=== PATIENT | female | born 1980 | race American Indian/Alaskan Native ===

== ENCOUNTER 2017-05-28 05:44 | Day surgery (SDC) | payer OTHER ==
--- NOTE | 2017-05-27 21:19 | History and Physical Report ---
History of Present Illness Date of examination: 05/22/17 Chief complaint: endometrial polyp History of present illness: Pt is a 37 year old -[place] female presents with dysfunctional uterine bleeding and two suspected endometrial polyps on pelvic ultrasound. Past History Past Medical History: hypertension, diabetes, other (morbid obesity, ankylosing spondylitis) Past Surgical History: no surgical history [employer] History: gonorrhea (remote, treated) Family/Genetic History: diabetes, heart disease, hypertension, other ( ankylosing spondylitis) Social history: smoking Medications and Allergies Allergies Allergy/AdvReac Type Severity Reaction Status Date / Time No Known Allergies Allergy Unverified 05/23/17 17:19 Home Medications Medication Instructions Recorded Confirmed Last Taken Type Metoprolol [Lopressor] 25 mg PO BID 02/18/17 05/23/17 Unknown History Multivitamin Tab [Multiple Vitamin 1 each PO QDAY 02/18/17 05/23/17 Unknown History TAB (Theragran)] Ranitidine HCl [Zantac 150 MG TAB] 150 mg PO PRN PRN 02/18/17 05/23/17 Unknown History metFORMIN [Glucophage] 1,000 mg PO BID 02/18/17 05/23/17 Unknown History Active Meds: Active Medications Famotidine (Pepcid) 20 mg PO PREOP NR Stop: 05/28/17 23:00 Sodium Chloride (Nacl 0.9% 1000 Ml) 1,000 mls @ 75 mls/hr IV DIRECT LEANNA Cefazolin Sodium (Ancef/Sterile Water 2 Gm/20 Ml) 2 gm in 20 mls @ 80 mls/hr IV PREOP NR PRN Reason: Protocol Midazolam HCl (Versed) 2 mg IV PREOP NR Stop: 05/28/17 23:59 Review of Systems All systems: negative - Physical Exam Breasts: Positive: deferred Cardiovascular: Regular rate Lungs: Positive: Clear to auscultation Abdomen: Positive: soft (obese) Extremities: Positive: normal Results All other labs normal. Ultrasound: other (Sonohysterogram 01/10/17: Uterus 8.5x5.5x4.3 cm. EMS 6mm. Two sessile polyps. Anterior wall 4x11 mm. Posterior wall in upper body 6x11 mm. No abnormal vascularity.) Assessment and Plan A: Dysfunctional Uterine Bleeding Endometrial Polyps Hypertension Diabetes Morbid Obesity Tobacco Use P: Proceed with Hysteroscopy, dilation and curettage, endometrial sampling and other indicated procedures.
[2017-05-28] MEDS ORDERED: VERSED IV NR (06:00)
[2017-05-28] MEDS ORDERED: PEPCID PO NR (06:00)
[2017-05-28] MEDS ORDERED: NACL 0.9% 1000 ML 1,000 ML IV SCH (06:00)
[2017-05-28] MEDS ORDERED: ANCEF/STERILE WATER 2 GM/20 ML 2 GM/20 ML SYRINGE IV NR (06:00)
[2017-05-28] MEDS ORDERED: NACL BACTERIOSTATIC INFILTRATI ONE (06:31)
[2017-05-28 06:47] LABS: Hematocrit 35.7 % (30.3-42.9); Hemoglobin 12.1 gm/dl (10.1-14.3); Mean Corpuscular HGB Conc 34 % (30-34); Mean Corpuscular Hemoglobin 29 pg (28-32); Mean Corpuscular Volume 87 fl (79-97); Platelet Count 320 K/mm3 (140-440); Red Blood Count 4.12 M/mm3 (3.65-5.03); Red Cell Distribution Width 13.4 % (13.2-15.2)
[2017-05-28] MEDS ORDERED: DIPRIVAN 10 MG/ML IV ONE ×2 (07:17→07:37)
[2017-05-28] MEDS ORDERED: XYLOCAINE MPF 2% ONE (07:17)
[2017-05-28] MEDS ORDERED: DILAUDID ONE (07:17)
[2017-05-28] MEDS ORDERED: DILAUDID IV PRN (07:19)
--- NOTE | 2017-05-28 07:26 | Anesthesia Day of Surgery ---
Anesthesia Day of Surgery - Day of Surgery Patient Examined: Yes Patient H&P Reviewed: Yes Patient is NPO: Yes
--- NOTE | 2017-05-28 07:26 | Anesthesia Consultation ---
Anesthesia Consult and Med Hx Date of service: 05/28/17 - Airway Anesthetic Teeth Evaluation: Good ROM Head & Neck: Adequate Mental/Hyoid Distance: Adequate Mallampati Class: Class I Intubation Access Assessment: Good - Pulmonary Exam CTA: Yes - Cardiac Exam Cardiac Exam: RRR - Pre-Operative Health Status ASA Pre-Surgery Classification: ASA3 Proposed Anesthetic Plan: General - Pulmonary Hx Smoking: Yes (quit May 22) - Cardiovascular System Hx Hypertension: Yes (x 5 yrs) - Central Nervous System Hx Psychiatric Problems: No - Gastrointestinal Hx Gastroesophageal Reflux Disease: Yes (food related) - Endocrine Hx Non-Insulin Dependent Diabetes: Yes - Other Systems Hx Alcohol Use: Yes (occas) Hx Cancer: No - Additional Comments Anesthesia Medical History Comments: Cyst on rt. lung, Ankylosing spondylitis, benadryl to sleep
[2017-05-28] MEDS ORDERED: ZOFRAN IV PRN (07:30)
[2017-05-28] MEDS ORDERED: NACL 0.9% IR ONE ×3 (07:51→08:51)
[2017-05-28] MEDS ORDERED: ZOFRAN ONE (08:01)
[2017-05-28] MEDS ORDERED: TORADOL ONE (08:12)
--- NOTE | 2017-05-28 09:11 | Operative Report ---
Operative Report Operative Report: Date of procedure: 05/28/2017 Preoperative diagnosis: #1 Dysfunctional uterine bleeding #2 Endometrial polyp # 3 Morbid obesity Postoperative diagnosis: Same Procedure: Operative Hysteroscopy with Polypectomy and endometrial sampling with Resectr device Surgeon: Thi Miranda M.D. Anesthesia: General with LMA Findings: 1) Small anteverted uterus which sounded to 9 cm 2) 3 small polyps, 2 on the posterior wall of the uterus, 1 in the right cornu EBL: Minimal Drains: None Complications: None Disposition: Stable to PACU Indication for Procedure: Pt is a 37 year old with for surgical evaluation of dysfunctional uterine bleeding and endometrial polyps. Operation in detail: After the risks, benefits, alternatives, and complications of the procedure were splayed to the patient, she gave informed consent for the procedure. She was subsequently taken to the operating room with IV noted to be running well placed in the dorsal supine position. Gen. anesthesia with LMA was induced without difficulty. The patient was then placed in the dorsal lithotomy position and exam under anesthesia was performed. She was then prepped and draped in normal sterile fashion. A timeout was performed. A catheter was used to drain the bladder of clear urine. An open sided bivalve speculum was placed into the vagina for adequate visualization of the cervix. A single-tooth tenaculum was placed on the anterior lip of the cervix for traction. The uterus was then sounded to 9 cm. Parker dilators were then used a #21 for adequate cervical dilation. The Aquilex hysteroscope was then used to visualize endometrial cavity showing areas of endometrial thickening on the anterior and lateral surfaces of the endometrium. The Resectr device was used to perform the polypectomies and sample the endometrium. All instruments were then removed from endometrial cavity. The single-tooth tenaculum was removed. Pressure was used to induce hemostasis of the tenaculum puncture sites. Hemostasis was noted. The bivalve speculum was removed from the vagina and the procedure was ended. The patient was replaced in dorsal supine position and extubated without difficulty. She was subsequently taken to the PACU in stable condition. She tolerated the procedure well. All instrument and Ray-Suzan counts were correct 2.
--- NOTE | 2017-05-28 09:15 | Short Stay Summary ---
Short Stay Documentation Date of service: 05/28/17 - History H&P: dictated Social history: smoking - Allergies and Medications Current Medications: Allergies No Known Allergies Allergy (Unverified 05/23/17 17:19) Home Medications Medication Instructions Recorded Confirmed Last Taken Type Metoprolol [Lopressor] 25 mg PO BID 02/18/17 05/28/17 05/28/17 05:00 History Multivitamin Tab [Multiple Vitamin 1 each PO QDAY 02/18/17 05/23/17 05/27/17 History TAB (Theragran)] Ranitidine HCl [Zantac 150 MG TAB] 150 mg PO PRN PRN 02/18/17 05/23/17 05/27/17 History metFORMIN [Glucophage] 1,000 mg PO BID 02/18/17 05/28/17 05/27/17 08:00 History Ibuprofen [Motrin] 800 mg PO Q8HR PRN #30 tablet 05/28/17 Unknown Rx oxyCODONE /ACETAMINOPHEN [Percocet 1 tab PO Q6HR PRN #20 tablet 05/28/17 Unknown Rx 5/325] Active Medications Famotidine (Pepcid) 20 mg PO PREOP NR Stop: 05/28/17 23:00 Last Admin: 05/28/17 06:41 Dose: 20 mg Hydromorphone HCl (Dilaudid) 0.5 mg IV Q10MIN PRN PRN Reason: Pain , Severe (7-10) Stop: 05/28/17 15:00 Sodium Chloride (Nacl 0.9% 1000 Ml) 1,000 mls @ 75 mls/hr IV DIRECT LEANNA Last Admin: 05/28/17 06:30 Dose: 75 mls/hr Cefazolin Sodium (Ancef/Sterile Water 2 Gm/20 Ml) 2 gm in 20 mls @ 80 mls/hr IV PREOP NR PRN Reason: Protocol Stop: 05/28/17 23:59 Midazolam HCl (Versed) 2 mg IV PREOP NR Stop: 05/28/17 23:59 Last Admin: 05/28/17 07:19 Dose: 2 mg - Physical exam Breasts: deferred - Brief post op/procedure progress note Date of procedure: 05/28/17 Pre-op diagnosis: Dysfunctional Uterine Bleeding, Endometrial Polyp Post-op diagnosis: same Procedure: Hysteroscopy Polypectomy and endometrial sampling with Resectr Device Anesthesia: GETA (with LMA ) Findings: 1) Small anteverted uterus which sounded to 9 cm 2) 3 small polyps, 2 on the posterior wall of the uterus, 1 in the right cornu Surgeon: XIOMARA MIRANDA Estimated blood loss: minimal Pathology: list (polyps and endometrial tissue) Specimen disposition: to lab - Hospital course Hospital course: Patient underwent hysteroscopy with polypectomy and endometrial sampling which she tolerated well. She was observed in the PACU until she met discharge criteria. She will return to the office in [address] Miranda. - Disposition Condition at discharge: Stable Disposition: TO HOME OR SELFCARE - Discharge Diagnoses (1) Dysfunctional uterine bleeding Status: Acute (2) Morbid obesity Status: Acute (3) Endometrial polyp Status: Acute (4) Diabetes Status: Acute Qualifiers: Diabetes mellitus type: type 2 Diabetes mellitus complication status: with unspecified complications Diabetes mellitus complication detail: D Diabetic retinopathy severity: D Proliferative retinopathy type: P Diabetes mellitus macular edema: D Diabetes mellitus longterm insulin use: without longterm use Laterality: L Chronic kidney disease stage: C Qualified Code(s): E11.8 - Type 2 diabetes mellitus with unspecified complications (5) Hypertension Status: Acute Qualifiers: Hypertension type: unspecified Qualified Code(s): I10 - Essential (primary ) hypertension (6) Tobacco abuse Status: Acute Short Stay Discharge Plan Activity: other (Nothing in vagina, no baths x 4 wks ) Weight Bearing Status: Full Weight Bearing Diet: regular Follow up with: ADRIAN GRAFF MD [Primary Care Provider] - 7 Days XIOMARA MIRANDA MD [Staff Physician] - 06/11/17 (postop) Prescriptions: Ibuprofen [Motrin] 800 mg PO Q8HR PRN #30 tablet PRN Reason: Pain oxyCODONE /ACETAMINOPHEN [Percocet 5/325] 1 tab PO Q6HR PRN #20 tablet PRN Reason: Pain
--- NOTE | 2017-05-28 09:20 | Post Anesthesia Evaluation ---
- Post Anesthesia Evaluation Patient Participated: Yes Airway Patent: Yes Stable Respiratory Function: Yes Nausea/Vomiting: No Temp > 96.8F: Yes Pain Manageable: Yes Adequeate Hydration: Yes Anesthesia Complications: No Block Receding Appropriately: Not Applicable Patient on Ventilator: No
[2017-05-28] MEDS ORDERED: PERCOCET 5/325 PO PRN (09:29)
[2017-05-28 10:02] VITALS: BP 112/83
== END 2017-05-28 10:21 | disposition home or self-care (01) ==
LOC: OR 05:44
PROVIDERS: ATTEND Obstetrics & Gynecology
DX: N85.01 Benign endometrial hyperplasia (principal); N85.4 Malposition of uterus; K21.9 Gastro-esophageal reflux disease without esophagitis; I10 Essential (primary) hypertension; E11.9 Type 2 diabetes mellitus without complications; M45.9 Ankylosing spondylitis of unspecified sites in spine; E66.01 Morbid (severe) obesity due to excess calories; Z68.44 Body mass index [BMI] 60.0-69.9, adult; Z87.891 Personal history of nicotine dependence; Z72.89 Other problems related to lifestyle; Z79.899 Other long term (current) drug therapy; Z79.84 Long term (current) use of oral hypoglycemic drugs
CPT/HCPCS: 36415; 58558; 81025; 82962; 85027; 86850; 86900; 86901; 88305; A4217; C1782; J0690; J1170; J1885; J2250; J2405; J2704; J7030

== ENCOUNTER 2017-09-04 14:14 | Inpatient (IN) | payer OTHER ==
[2017-09-04] MEDS ORDERED: ZOFRAN IV ONE (16:13)
[2017-09-04] MEDS ORDERED: SUBLIMAZE IV ONE ×2 (16:13→21:18)
[2017-09-04] MEDS ORDERED: NACL 0.9% 1000 ML 1,000 ML IV ONE (16:14)
--- NOTE | 2017-09-04 16:19 | Emergency Department Report ---
HPI - General Chief Complaint: Wound/Laceration Time Seen by Provider: 09/04/17 16:07 - HPI HPI: Room 25 The patient is a 37-year-old female comes in with a chief complaint of left buttocks abscess. The patient states last night she began to feel pain at the site of the left buttocks/perineum. The patient states the pain continued to increase since last night. Patient is to subjective fever. Patient denies any drainage from the site or any recent trauma. The patient currently gives her pain a score of 10/10 Location: Left buttocks, perineum Duration: Constant since last night Quality: Pain Severity:10/10 Modifying factors: [see above] Context: [see above] Mode of transportation: [not driving] ED Past Medical Hx - Past Medical History Hx Hypertension: Yes (x 5 yrs) Hx Diabetes: Yes (x 5 yrs) Hx GERD: Yes Additional medical history: Ankylosing spondylitis - Surgical History Additional Surgical History: D&C - Family History Family history: no significant - Social History Smoking Status: Former Smoker (none 6 months) Substance Use Type: None (denies illicit drug use), Alcohol (occasional) - Medications Home Medications: Home Medications Medication Instructions Recorded Confirmed Last Taken Type Metoprolol [Lopressor] 25 mg PO BID 02/18/17 09/04/17 09/04/17 History Multivitamin Tab [Multiple Vitamin 1 each PO QDAY 02/18/17 09/04/17 09/03/17 History TAB (Theragran)] Ranitidine HCl [Zantac 150 MG TAB] 150 mg PO PRN PRN 02/18/17 09/04/17 09/03/17 History metFORMIN [Glucophage] 1,000 mg PO BID 02/18/17 09/04/17 09/04/17 History Ibuprofen [Motrin] 800 mg PO Q8HR PRN #30 tablet 05/28/17 09/04/17 09/03/17 Rx Lovastatin [Altoprev] 20 mg PO QPM 09/04/17 09/04/17 09/03/17 History medroxyPROGESTERone ACETATE 10 mg PO QDAY 09/04/17 09/04/17 09/03/17 History [Provera] ED Review of Systems ROS: Stated complaint: BUTTOCKS ABSCESS Other details as noted in HPI Constitutional: fever (subjective) Skin: lesions Physical Exam - Physical Exam Vital Signs: Vital Signs 09/04/17 14:32 Temperature 99 F Pulse Rate 138 H Respiratory 20 Rate Blood Pressure 144/102 O2 Sat by Pulse 99 Oximetry Physical Exam: GENERAL: The patient is well-developed well-nourished female lying on stretcher in the right lateral decubitus position appearing to be in moderate discomfort. [] HEENT: Normocephalic. Atraumatic. Extraocular motions are intact. Patient has moist mucous membranes. NECK: Trachea midline CHEST/LUNGS: There is no respiratory distress noted. There is no gallop rub or murmur. ABDOMEN: Obese SKIN: There is an approximately baseball size region of fluctuance to the left inferior gluteus that also appears to approach the perianal region. There is no drainage. There is overlying erythema/cellulitis NEURO: The patient is awake, alert, and oriented. The patient is cooperative. The patient has normal speech MUSCULOSKELETAL: There is no evidence of acute injury. ED Course Vital Signs 09/04/17 14:32 Temperature 99 F Pulse Rate 138 H Respiratory 20 Rate Blood Pressure 144/102 O2 Sat by Pulse 99 Oximetry - Consultations Consultation #1: 09/04/17 21:53 Surgery paged ED Medical Decision Making - Lab Data Result diagrams: 09/04/17 16:15 09/04/17 16:15 Laboratory Tests 09/04/17 09/04/17 09/04/17 15:59 16:15 16:15 WBC 14.8 H RBC 4.29 Hgb 12.3 Hct 38.0 MCV 89 MCH 29 MCHC 33 RDW 14.7 Plt Count 311 Lymph % (Auto) 12.7 L [place] % (Auto) 7.8 H Eos % (Auto) 0.2 Baso % (Auto) 0.5 Lymph # 1.9 [place] # 1.2 H Eos # 0.0 Baso # 0.1 Seg Neutrophils % 78.8 H Seg Neutrophils # 11.7 H VBG pH Sodium 135 L Potassium 3.7 Chloride 99.2 Carbon Dioxide 21 L Anion Gap 19 BUN 6 L Creatinine 0.8 Estimated GFR > 60 BUN/Creatinine Ratio 8 Glucose 141 H POC Glucose 152 H Lactic Acid Calcium 9.0 HCG, Qual Urine Color Urine Turbidity Urine pH Ur Specific [place] Urine Protein Urine Glucose (UA) Urine Ketones Urine Blood Urine Nitrite Urine Bilirubin Urine Urobilinogen Ur Leukocyte Esterase Urine WBC (Auto) Urine RBC (Auto) U Epithel Cells (Auto) Urine Mucus 09/04/17 09/04/17 09/04/17 16:15 16:15 17:14 WBC RBC Hgb Hct MCV MCH MCHC RDW Plt Count Lymph % (Auto) [place] % (Auto) Eos % (Auto) Baso % (Auto) Lymph # [place] # Eos # Baso # Seg Neutrophils % Seg Neutrophils # VBG pH 7.438 H Sodium Potassium Chloride Carbon Dioxide Anion Gap BUN Creatinine Estimated GFR BUN/Creatinine Ratio Glucose POC Glucose Lactic Acid 2.50 H* Calcium HCG, Qual Negative Urine Color Urine Turbidity Urine pH Ur Specific [place] Urine Protein Urine Glucose (UA) Urine Ketones Urine Blood Urine Nitrite Urine Bilirubin Urine Urobilinogen Ur Leukocyte Esterase Urine WBC (Auto) Urine RBC (Auto) U Epithel Cells (Auto) Urine Mucus 09/04/17 17:56 WBC RBC Hgb Hct MCV MCH MCHC RDW Plt Count Lymph % (Auto) [place] % (Auto) Eos % (Auto) Baso % (Auto) Lymph # [place] # Eos # Baso # Seg Neutrophils % Seg Neutrophils # VBG pH Sodium Potassium Chloride Carbon Dioxide Anion Gap BUN Creatinine Estimated GFR BUN/Creatinine Ratio Glucose POC Glucose Lactic Acid Calcium HCG, Qual Urine Color Yellow Urine Turbidity Slightly-cloudy Urine pH 5.0 Ur Specific [place] 1.024 Urine Protein 100 mg/dl Urine Glucose (UA) Neg Urine Ketones 20 Urine Blood Neg Urine Nitrite Neg Urine Bilirubin Neg Urine Urobilinogen 2.0 Ur Leukocyte Esterase Neg Urine WBC (Auto) 1.0 Urine RBC (Auto) 2.0 U Epithel Cells (Auto) 14.0 H Urine Mucus 1+ - Radiology Data Radiology results: report reviewed (CT abdomen and pelvis), image reviewed (CT abdomen and pelvis) FINAL REPORT PROCEDURE: CT abdomen and pelvis with contrast. TECHNIQUE: Computerized axial tomography of the abdomen and pelvis was performed after the IV injection of iodinated nonionic contrast. HISTORY: Left buttock or possibly perianal abscess. COMPARISON: No prior studies are available for comparison. FINDINGS: The lung bases are clear. There are no pleural effusions. The heart size is normal. The liver, pancreas and spleen appear normal. The gallbladder is present. The adrenal glands are not enlarged. Both kidneys appear normal in size and configuration. The abdominal aorta has a normal caliber. There is no retroperitoneal adenopathy. The unopacified gastrointestinal tract is unremarkable. A normal appendix is visible. The bladder, uterus and adnexal regions appear normal. There is a small area of low attenuation adjacent to the left side of the anus. This measures approximately 23.9 millimeters x 14.9 millimeters in cross-section. It is not of definite fluid attenuation but could represent a phlegmon or early abscess. There is also some infiltration of the subcutaneous fat in the left buttock consistent with inflammation. The regional skeleton appears intact. IMPRESSION: Inflammation in the left perianal area and adjacent subcutaneous fat. Possible small phlegmon versus early abscess. Transcribed By: MRM Dictated By: GIGI GARCIA MD Electronically Authenticated By: GIGI GARCIA MD Signed Date/Time: 09/04/171744 DD/ 44 TD/TT: 09/04/171744 - Differential Diagnosis perianal abscess, cellulitis, abscess, DKA Critical care attestation.: If time is entered above; I have spent that time in minutes in the direct care of this critically ill patient, excluding procedure time. ED Disposition Clinical Impression: Perianal abscess, Tachycardia Disposition: OP ADMIT IP TO THIS HOSP Is pt being admited?: Yes Does the pt Need Aspirin: No Condition: Serious Referrals: CLAUDIA JUNG MD [Primary Care Provider] - 3-5 Days Time of Disposition: 21:58 (hospitalist paged (Dr. Marielle Laughlin))
[2017-09-04 16:31] LABS: Basophils % (Auto) 0.5 % (0.0-1.8); Eosinophils % (Auto) 0.2 % (0.0-4.3); Hemoglobin 12.3 gm/dl (10.1-14.3); Mean Corpuscular HGB Conc 33 % (30-34); Mean Corpuscular Hemoglobin 29 pg (28-32); Mean Corpuscular Volume 89 fl (79-97); Platelet Count 311 K/mm3 (140-440); Red Blood Count 4.29 M/mm3 (3.65-5.03); Red Cell Distribution Width 14.7 % (13.2-15.2); White Blood Count 14.8 K/mm3 (4.5-11.0)
[2017-09-04 16:51] LABS: Anion Gap 19 mmol/L; BUN/Creatinine Ratio 8; Blood Urea Nitrogen 6 mg/dL (7-17); Carbon Dioxide 21 mmol/L (22-30); Chloride 99.2 mmol/L (98-107); Glucose 141 mg/dL (65-100); Potassium 3.7 mmol/L (3.6-5.0); Sodium 135 mmol/L (137-145)
[2017-09-04] MEDS ORDERED: ZOSYN/NS 4.5GM/100ML 4.5 GM/100 ML VIAL IV ONE (17:13)
[2017-09-04] MEDS ORDERED: VANCOMYCIN/NS 1 GM/250 ML 1 GM/250 ML BAG IV ONE (17:13)
[2017-09-04] MEDS ORDERED: DILAUDID IV ONE ×3 (18:04→22:00)
[2017-09-04 18:38] LABS: Bilirubin,Urine NEG (Negative); Blood,Urine NEG (Negative); Ketones,Urine 20 mg/dL (Negative); Leukocyte Esterase,Urine NEG (Negative); Mucus,Urine 1+ /HPF; Nitrite,Urine NEG (Negative)
[2017-09-04] MEDS ORDERED: DILAUDID ONE (18:51)
[2017-09-04] MEDS ORDERED: NACL ONE (20:11)
[2017-09-04] MEDS ORDERED: SUBLIMAZE ONE (21:20)
[2017-09-04] MEDS ORDERED: MORPHINE IV ONE ×2 (21:23→22:44)
--- NOTE | 2017-09-04 21:48 | Cat Scan Report ---
FINAL REPORT PROCEDURE: CT abdomen and pelvis with contrast. TECHNIQUE: Computerized axial tomography of the abdomen and pelvis was performed after the IV injection of iodinated nonionic contrast. HISTORY: Left buttock or possibly perianal abscess. COMPARISON: No prior studies are available for comparison. FINDINGS: The lung bases are clear. There are no pleural effusions. The heart size is normal. The liver, pancreas and spleen appear normal. The gallbladder is present. The adrenal glands are not enlarged. Both kidneys appear normal in size and configuration. The abdominal aorta has a normal caliber. There is no retroperitoneal adenopathy. The unopacified gastrointestinal tract is unremarkable. A normal appendix is visible. The bladder, uterus and adnexal regions appear normal. There is a small area of low attenuation adjacent to the left side of the anus. This measures approximately 23.9 millimeters x 14.9 millimeters in cross-section. It is not of definite fluid attenuation but could represent a phlegmon or early abscess. There is also some infiltration of the subcutaneous fat in the left buttock consistent with inflammation. The regional skeleton appears intact. IMPRESSION: Inflammation in the left perianal area and adjacent subcutaneous fat. Possible small phlegmon versus early abscess.
[2017-09-04] MEDS ORDERED: MORPHINE ONE (22:42)
[2017-09-04] MEDS ORDERED: MILK OF MAGNESIA PO PRN (22:49)
[2017-09-04] MEDS ORDERED: D50W (25GM) Vial IV PRN (22:49)
[2017-09-04] MEDS ORDERED: DULCOLAX PR PRN (22:49)
[2017-09-04] MEDS ORDERED: ZOFRAN IV PRN (22:49)
[2017-09-04] MEDS ORDERED: PROVENTIL IH PRN (22:49)
[2017-09-04] MEDS ORDERED: NACL 0.9% 1000 ML 2,000 ML IV ONE (22:51)
--- NOTE | 2017-09-04 22:52 | History and Physical Report ---
History of Present Illness Date of examination: 09/04/17 History of present illness: 37-year-old woman with a history of hypertension, diabetes, GERD, ankylosing spondylitis comes emergency roombecause she developed a lump on her buttock. She states it's very painful, sharp and shooting sensation, constant, intensity 9/10, no radiation, she cannot identify exacerbating factors. Pain is relieved with IV morphine, complains of chills Review Of Systems: Constitutional: no weight loss Ears, eyes, nose, mouth and throat: no nasal congestion, no nasal discharge, no sinus pressure, blurry vision, diplopia Neck: No neck pain or rigidity. Cardiovascular: No chest pain, palpitations Respiratory: No shortness of breath, cough Gastrointestinal: No abdominal pain, hematochezia Genitourinary : no dysuria, frequency , hematuria Musculoskeletal: no muscle ache Integumentary: no rash, no pruritis Neurological: no parathesias, focal weakness Endocrine: no cold or heat intolerance, no polyuria or polydipsia Hematologic/Lymphatic: no easy bruising, no easy bleeding, no gland swelling Allergic/Immunologic: no urticaria, no angioedema. PAST MEDICAL HISTORY:hypertension, diabetes, GERD, ankylosing spondylitis PAST SURGICAL HISTORY:none FAMILY HISTORY: hypertension, diabetes SOCIAL HISTORY: Quit smoking, no alcohol or drug Medications and Allergies Allergies Allergy/AdvReac Type Severity Reaction Status Date / Time No Known Allergies Allergy Unverified 05/23/17 17:19 Home Medications Medication Instructions Recorded Confirmed Last Taken Type Metoprolol [Lopressor TAB] 25 mg PO BID 02/18/17 09/04/17 09/04/17 History Multivitamin Tab [Multiple Vitamin 1 each PO QDAY 02/18/17 09/04/17 09/03/17 History TAB (Theragran)] Ranitidine HCl [Zantac 150 MG TAB] 150 mg PO PRN PRN 02/18/17 09/04/17 09/03/17 History metFORMIN [Glucophage] 1,000 mg PO BID 02/18/17 09/04/17 09/04/17 History Lovastatin [Altoprev] 20 mg PO QPM 09/04/17 09/04/17 09/03/17 History medroxyPROGESTERone ACETATE 10 mg PO QDAY 09/04/17 09/04/17 09/03/17 History [Provera] HYDROcodone/ACETAMINOPHEN [[place] 1 each PO Q6H #20 tablet 09/08/17 Unknown Rx 10-325 Tablet] Levofloxacin [Levaquin] 750 mg PO QDAY 12 Days tablet 09/08/17 Unknown Rx Promethazine [Phenergan TAB] 25 mg PO Q6HR PRN #20 tab 09/08/17 Unknown Rx metroNIDAZOLE [Flagyl] 500 mg PO Q8HR 12 Days tablet 09/08/17 Unknown Rx Active Meds: Active Medications Acetaminophen (Tylenol) 650 mg PO Q4H PRN PRN Reason: Pain MILD(1-3)/Fever >100.5/[place] Albuterol (Proventil) 2.5 mg IH Q3HRT PRN PRN Reason: Shortness Of Breath Bisacodyl (Dulcolax) 10 mg MT QDAY PRN PRN Reason: Constipation unrelieved by MOM Dextrose (D50w (25gm) Syringe) 50 ml IV PRN PRN PRN Reason: Hypoglycemia Enoxaparin Sodium (Lovenox) 30 mg SUB-Q QDAY LEANNA Sodium Chloride (Nacl 0.45% 1000 Ml) 1,000 mls @ 100 mls/hr IV DIRECT LEANNA Sodium Chloride (Nacl 0.9% 1000 Ml) 2,000 mls @ 999 mls/hr IV ONCE ONE Stop: 09/05/17 00:51 Magnesium Hydroxide (Milk Of Magnesia) 30 ml PO Q4H PRN PRN Reason: Constipation Morphine Sulfate (Morphine) 2 mg IV Q4H PRN PRN Reason: Pain, Moderate (4-6) Ondansetron HCl (Zofran) 4 mg IV Q8H PRN PRN Reason: N/V unrelieved by Reglan Exam - Physical Exam Narrative exam: Gen. appearance: Patient lying in bed in no acute distress HEENT: Normocephalic/atraumatic, pupils equal round reactive to light, extra occular movement intact, no scleral icterus, no JVD or thyromegaly or nodule, neck is supple, mucous membrane moist, no erythema or exudate Heart: S1-S2, regular rate and rhythm Lungs: Clear to auscultation bilateral breathing comfortable Abdomen: Positive bowel sounds, nontender, nondistended, no organomegaly Extremities: Left perirectal abscess, positive erythema, indurated, tender, No peripheral edema, cyanosis, clubbing Neuro:: Oriented 3 , cranial nerves II-12 intact, speech, motor intact Skin: No rash, nodules, warm dry - Constitutional Vitals: Temp Pulse Resp BP Pulse Ox 98.2 F 122 H 21 143/84 98 09/04/17 19:31 09/04/17 21:45 09/04/17 21:45 09/04/17 21:45 09/04/17 19:31 Results - Labs CBC & Chem 7: 09/07/17 08:39 09/07/17 08:39 Labs: Abnormal lab results 09/04/17 09/04/17 09/04/17 Range/Units 15:59 16:15 16:15 WBC 14.8 H (4.5-11.0) K/mm3 Lymph % (Auto) 12.7 L (13.4-35.0) % Desha % (Auto) 7.8 H (0.0-7.3) % Desha # 1.2 H (0.0-0.8) K/mm3 Seg Neutrophils % 78.8 H (40.0-70.0) % Seg Neutrophils # 11.7 H (1.8-7.7) K/mm3 VBG pH (7.320-7.420) Sodium 135 L (137-145) mmol/L Carbon Dioxide 21 L (22-30) mmol/L BUN 6 L (7-17) mg/dL Glucose 141 H (65-100) mg/dL POC Glucose 152 H (70-105) Lactic Acid (0.7-2.0) mmol/L U Epithel Cells (Auto) (0-13.0) /HPF 09/04/17 09/04/17 09/04/17 Range/Units 16:15 16:15 17:56 WBC (4.5-11.0) K/mm3 Lymph % (Auto) (13.4-35.0) % Desha % (Auto) (0.0-7.3) % Desha # (0.0-0.8) K/mm3 Seg Neutrophils % (40.0-70.0) % Seg Neutrophils # (1.8-7.7) K/mm3 VBG pH 7.438 H (7.320-7.420) Sodium (137-145) mmol/L Carbon Dioxide (22-30) mmol/L BUN (7-17) mg/dL Glucose (65-100) mg/dL POC Glucose (70-105) Lactic Acid 2.50 H* (0.7-2.0) mmol/L U Epithel Cells (Auto) 14.0 H (0-13.0) /HPF - Imaging and Cardiology CT scan - abdomen: report reviewed CT scan - pelvis: report reviewed Assessment and Plan Assessment Sepsis Left perirectal abscess Hypertension Diabetes type 2 GERD Ankylosing spondylitis Plan admit to medicine Status post Vanco and Zosyn, continue Zosyn, start IV fluids Follow blood cultures, consult surgery, start IV morphine Check fingersticks and initiate insulin sliding scale Continued appropriate outpatient medication, DVT prophylaxis
[2017-09-04] MEDS ORDERED: PEPCID PO PRN (23:06)
[2017-09-04] MEDS: TYLENOL PO PRN (23:08)
[2017-09-04] MEDS ORDERED: TYLENOL ONE (23:19)
[2017-09-05 05:45] LABS: Basophils % (Auto) 0.5 % (0.0-1.8); Eosinophils % (Auto) 0.1 % (0.0-4.3); Hemoglobin 11.6 gm/dl (10.1-14.3); Mean Corpuscular HGB Conc 33 % (30-34); Mean Corpuscular Hemoglobin 30 pg (28-32); Mean Corpuscular Volume 90 fl (79-97); Platelet Count 271 K/mm3 (140-440); Red Blood Count 3.89 M/mm3 (3.65-5.03); Red Cell Distribution Width 14.3 % (13.2-15.2); White Blood Count 15.4 K/mm3 (4.5-11.0)
[2017-09-05] MEDS ORDERED: PEPCID PO PRN (06:00)
[2017-09-05 06:05] LABS: Anion Gap 21 mmol/L; BUN/Creatinine Ratio 8; Blood Urea Nitrogen 6 mg/dL (7-17); Calcium 8.7 mg/dL (8.4-10.2); Carbon Dioxide 19 mmol/L (22-30); Chloride 104.3 mmol/L (98-107); Glucose 216 mg/dL (65-100); Sodium 140 mmol/L (137-145)
[2017-09-05] MEDS: ZOSYN/NS 4.5GM/100ML 4.5 GM/100 ML VIAL IV SCH ×2 (06:36→14:00)
[2017-09-05] MEDS: MORPHINE IV PRN ×2 (06:44→10:07)
[2017-09-05] MEDS: LOVENOX SUB-Q SCH (10:08)
--- NOTE | 2017-09-05 11:53 | Progress Note ---
<RAKESH BEDOYA R - Last Filed: 09/05/17 12:09> Assessment and Plan Assessment and plan: I saw and evaluated the patient. I agree with the findings and the plan of care as documented in the PA's~note Hospitalist Physical - Constitutional Vitals: Temp Pulse Resp BP Pulse Ox 98.4 F 110 H 20 130/88 98 09/05/17 07:22 09/05/17 07:22 09/05/17 08:15 09/05/17 07:22 09/05/17 07:22 Results - Labs CBC & Chem 7: 09/05/17 05:15 09/05/17 05:15 Labs: Laboratory Last Values WBC 15.4 K/mm3 (4.5-11.0) H 09/05/17 05:15 RBC 3.89 M/mm3 (3.65-5.03) 09/05/17 05:15 Hgb 11.6 gm/dl (10.1-14.3) 09/05/17 05:15 Hct 35.0 % (30.3-42.9) 09/05/17 05:15 MCV 90 fl (79-97) 09/05/17 05:15 MCH 30 pg (28-32) 09/05/17 05:15 MCHC 33 % (30-34) 09/05/17 05:15 RDW 14.3 % (13.2-15.2) 09/05/17 05:15 Plt Count 271 K/mm3 (140-440) 09/05/17 05:15 Lymph % (Auto) 13.8 % (13.4-35.0) 09/05/17 05:15 [place] % (Auto) 7.5 % (0.0-7.3) H 09/05/17 05:15 Eos % (Auto) 0.1 % (0.0-4.3) 09/05/17 05:15 Baso % (Auto) 0.5 % (0.0-1.8) 09/05/17 05:15 Lymph # 2.1 K/mm3 (1.2-5.4) 09/05/17 05:15 [place] # 1.2 K/mm3 (0.0-0.8) H 09/05/17 05:15 Eos # 0.0 K/mm3 (0.0-0.4) 09/05/17 05:15 Baso # 0.1 K/mm3 (0.0-0.1) 09/05/17 05:15 Seg Neutrophils % 78.1 % (40.0-70.0) H 09/05/17 05:15 Seg Neutrophils # 12.0 K/mm3 (1.8-7.7) H 09/05/17 05:15 VBG pH 7.438 (7.320-7.420) H 09/04/17 16:15 Sodium 140 mmol/L (137-145) 09/05/17 05:15 Potassium 4.0 mmol/L (3.6-5.0) 09/05/17 05:15 Chloride 104.3 mmol/L (98-107) 09/05/17 05:15 Carbon Dioxide 19 mmol/L (22-30) L 09/05/17 05:15 Anion Gap 21 mmol/L 09/05/17 05:15 BUN 6 mg/dL (7-17) L 09/05/17 05:15 Creatinine 0.8 mg/dL (0.7-1.2) 09/05/17 05:15 Estimated GFR > 60 ml/min 09/05/17 05:15 BUN/Creatinine Ratio 8 % 09/05/17 05:15 Glucose 216 mg/dL (65-100) H 09/05/17 05:15 POC Glucose 152 (70-105) H 09/04/17 15:59 Lactic Acid 2.50 mmol/L (0.7-2.0) H* 09/04/17 16:15 Calcium 8.7 mg/dL (8.4-10.2) 09/05/17 05:15 HCG, Qual Negative (Negative) 09/04/17 17:14 Urine Color Yellow (Yellow) 09/04/17 17:56 Urine Turbidity Slightly-cloudy (Clear) 09/04/17 17:56 Urine pH 5.0 (5.0-7.0) 09/04/17 17:56 Ur Specific [employer] 1.024 (1.003-1.030) 09/04/17 17:56 Urine Protein 100 mg/dl mg/dL (Negative) 09/04/17 17:56 Urine Glucose (UA) Neg mg/dL (Negative) 09/04/17 17:56 Urine Ketones 20 mg/dL (Negative) 09/04/17 17:56 Urine Blood Neg (Negative) 09/04/17 17:56 Urine Nitrite Neg (Negative) 09/04/17 17:56 Urine Bilirubin Neg (Negative) 09/04/17 17:56 Urine Urobilinogen 2.0 mg/dL (<2.0) 09/04/17 17:56 Ur Leukocyte Esterase Neg (Negative) 09/04/17 17:56 Urine WBC (Auto) 1.0 /HPF (0.0-6.0) 09/04/17 17:56 Urine RBC (Auto) 2.0 /HPF (0.0-6.0) 09/04/17 17:56 U Epithel Cells (Auto) 14.0 /HPF (0-13.0) H 09/04/17 17:56 Urine Mucus 1+ /HPF 09/04/17 17:56 <TY PIERRE - Last Filed: 09/05/17 16:46> Assessment and Plan Assessment and plan: The patient is a 37-year-old female comes in with a chief complaint of left buttocks abscess. The patient states last night she began to feel pain at the site of the left buttocks/perineum. The patient states the pain continued to increase since last night. Patient is to subjective fever. Patient denies any drainage from the site or any recent trauma. The patient currently gives her pain a score of 10/10 Sepsis Pending blood cultures Leukocytosis worsening, Continue IV Zosyn Left perirectal abscess Surgical consult pending Continue Abx, supportive care Hypertension Resume home meds Diabetes type 2 Resume Metformin Accuchecks SSI GERD Ranitidine PRN Ankylosing spondylitis supportive care DVT Prophylaxis Lovenox History Interval history: Patient complains of peiranal pain that is not relieved with medications. She denies SOB, CP , [place] Hospitalist Physical - Constitutional Vitals: Temp Pulse Resp BP Pulse Ox 98.4 F 110 H 20 130/88 98 09/05/17 07:22 09/05/17 07:22 09/05/17 08:15 09/05/17 07:22 09/05/17 07:22 General appearance: Present: mild distress - EENT Eyes: Present: PERRL, EOM intact ENT: hearing intact, clear oral mucosa, dentition normal - Neck Neck: Present: supple, normal ROM - Respiratory Respiratory effort: normal Respiratory: bilateral: CTA - Cardiovascular Rhythm: regular Heart Sounds: Present: S1 & S2 - Extremities Extremities: no ischemia Extremity abnormal: edema (trace) Peripheral Pulses: within normal limits - Abdominal General gastrointestinal: soft, non-tender - Integumentary Integumentary: Present: warm (Left perirectal abscess, positive erythema, indurated, tender), dry - Psychiatric Psychiatric: appropriate mood/affect - Neurologic Neurologic: CNII-XII intact, moves all extremities - Allied Health Allied health notes reviewed: nursing Results - Labs CBC & Chem 7: 09/05/17 05:15 09/05/17 05:15 Labs: Laboratory Last Values WBC 15.4 K/mm3 (4.5-11.0) H 09/05/17 05:15 RBC 3.89 M/mm3 (3.65-5.03) 09/05/17 05:15 Hgb 11.6 gm/dl (10.1-14.3) 09/05/17 05:15 Hct 35.0 % (30.3-42.9) 09/05/17 05:15 MCV 90 fl (79-97) 09/05/17 05:15 MCH 30 pg (28-32) 09/05/17 05:15 MCHC 33 % (30-34) 09/05/17 05:15 RDW 14.3 % (13.2-15.2) 09/05/17 05:15 Plt Count 271 K/mm3 (140-440) 09/05/17 05:15 Lymph % (Auto) 13.8 % (13.4-35.0) 09/05/17 05:15 [place]eves % (Auto) 7.5 % (0.0-7.3) H 09/05/17 05:15 Eos % (Auto) 0.1 % (0.0-4.3) 09/05/17 05:15 Baso % (Auto) 0.5 % (0.0-1.8) 09/05/17 05:15 Lymph # 2.1 K/mm3 (1.2-5.4) 09/05/17 05:15 [place]eves # 1.2 K/mm3 (0.0-0.8) H 09/05/17 05:15 Eos # 0.0 K/mm3 (0.0-0.4) 09/05/17 05:15 Baso # 0.1 K/mm3 (0.0-0.1) 09/05/17 05:15 Seg Neutrophils % 78.1 % (40.0-70.0) H 09/05/17 05:15 Seg Neutrophils # 12.0 K/mm3 (1.8-7.7) H 09/05/17 05:15 VBG pH 7.438 (7.320-7.420) H 09/04/17 16:15 Sodium 140 mmol/L (137-145) 09/05/17 05:15 Potassium 4.0 mmol/L (3.6-5.0) 09/05/17 05:15 Chloride 104.3 mmol/L (98-107) 09/05/17 05:15 Carbon Dioxide 19 mmol/L (22-30) L 09/05/17 05:15 Anion Gap 21 mmol/L 09/05/17 05:15 BUN 6 mg/dL (7-17) L 09/05/17 05:15 Creatinine 0.8 mg/dL (0.7-1.2) 09/05/17 05:15 Estimated GFR > 60 ml/min 09/05/17 05:15 BUN/Creatinine Ratio 8 % 09/05/17 05:15 Glucose 216 mg/dL (65-100) H 09/05/17 05:15 POC Glucose 152 (70-105) H 09/04/17 15:59 Lactic Acid 2.50 mmol/L (0.7-2.0) H* 09/04/17 16:15 Calcium 8.7 mg/dL (8.4-10.2) 09/05/17 05:15 HCG, Qual Negative (Negative) 09/04/17 17:14 Urine Color Yellow (Yellow) 09/04/17 17:56 Urine Turbidity Slightly-cloudy (Clear) 09/04/17 17:56 Urine pH 5.0 (5.0-7.0) 09/04/17 17:56 Ur Specific [employer] 1.024 (1.003-1.030) 09/04/17 17:56 Urine Protein 100 mg/dl mg/dL (Negative) 09/04/17 17:56 Urine Glucose (UA) Neg mg/dL (Negative) 09/04/17 17:56 Urine Ketones 20 mg/dL (Negative) 09/04/17 17:56 Urine Blood Neg (Negative) 09/04/17 17:56 Urine Nitrite Neg (Negative) 09/04/17 17:56 Urine Bilirubin Neg (Negative) 09/04/17 17:56 Urine Urobilinogen 2.0 mg/dL (<2.0) 09/04/17 17:56 Ur Leukocyte Esterase Neg (Negative) 09/04/17 17:56 Urine WBC (Auto) 1.0 /HPF (0.0-6.0) 09/04/17 17:56 Urine RBC (Auto) 2.0 /HPF (0.0-6.0) 09/04/17 17:56 U Epithel Cells (Auto) 14.0 /HPF (0-13.0) H 09/04/17 17:56 Urine Mucus 1+ /HPF 09/04/17 17:56
[2017-09-05] MEDS: LOPRESSOR PO SCH ×2 (12:00→21:44)
[2017-09-05] MEDS ORDERED: DILAUDID IV PRN ×2 (13:01→13:12)
[2017-09-05] MEDS: DILAUDID IV PRN ×2 (14:23→22:13)
[2017-09-05] MEDS: PROVERA PO SCH (15:27)
[2017-09-05] MEDS: PRAVACHOL PO SCH (21:44)
[2017-09-06] MEDS: ZOSYN/NS 4.5GM/100ML 4.5 GM/100 ML VIAL IV SCH ×4 (00:40→23:10)
[2017-09-06] MEDS: NACL 0.45% 1000 ML 1,000 ML IV SCH ×2 (01:21→11:16)
--- NOTE | 2017-09-06 03:53 | Consultation ---
HISTORY OF PRESENT ILLNESS: This patient was seen in the Emergency Room last night. She is a 37-year-old black female. She is overweight. She is known case of diabetes mellitus for the last 4-5 years. She is on metformin 2 grams per day. She came because of severe pain that she developed into the perirectal area on the left side. She could not sleep because of the pain. She had no nausea, no vomiting. She denied any bleeding per rectum. She had no constipation. She gives a history of a small growth in her right lung requiring a biopsy. According to her, it was benign. She had D and C for a polyp about 4 months ago. The patient has never been in the hospital. ALLERGIES: Allergic reaction were denied. MEDICATIONS: Metformin. PERSONAL HISTORY: The patient has diabetes. She has no children. As mentioned above, she used to smoke. She quit about 2 months ago. PHYSICAL EXAMINATION: GENERAL: A well-preserved, moderately highly obese black female. Her BMI is 44.2 kilograms. She weighs 128 kilogram. She is 5 feet 7 inches tall. HEAD AND NECK: Essentially nonrevealing. NECK: Supple. CHEST: Essentially clear. HEART: Sounds normal to me. BREASTS: Symmetrical. No evidence of specific masses. ABDOMEN: Protuberant, soft, benign. RECTAL: Showed large area of induration that is a good 10 x 10 cm located on the left cheek of her perirectal area with severe tenderness. EXTREMITIES: Showed no sign of any edema. IMPRESSION AND PLAN: Perirectal abscess. I believe this needs to be addressed surgically. We will try to do that on her tomorrow under general anesthesia. I discussed the operation and the complication involved, namely bleeding, infection, it may come back again. The sugar has got to be taken care for anesthesia problems and others. JOB# [id number] GRANT/ROXANNE
[2017-09-06] MEDS: MORPHINE IV PRN (04:45)
[2017-09-06] MEDS: DILAUDID IV PRN ×3 (06:33→23:12)
[2017-09-06] MEDS: LOPRESSOR PO SCH ×2 (10:00→22:51)
[2017-09-06] MEDS: LOVENOX SUB-Q SCH (11:18)
[2017-09-06] MEDS: NOVOLOG SUB-Q SCH ×2 (12:00→18:14)
[2017-09-06] MEDS ORDERED: DIPRIVAN 10 MG/ML IV ONE (12:37)
[2017-09-06] MEDS ORDERED: XYLOCAINE MPF 2% ONE ×2 (12:37→13:02)
[2017-09-06] MEDS ORDERED: DILAUDID ONE ×2 (12:40→18:03)
--- NOTE | 2017-09-06 12:41 | Anesthesia Day of Surgery ---
Anesthesia Day of Surgery - Day of Surgery Patient Examined: Yes Patient H&P Reviewed: Yes Patient is NPO: Yes
--- NOTE | 2017-09-06 12:41 | Anesthesia Consultation ---
Anesthesia Consult and Med Hx Date of service: 09/06/17 - Airway Anesthetic Teeth Evaluation: Good ROM Head & Neck: Adequate Mental/Hyoid Distance: Adequate Mallampati Class: Class II Intubation Access Assessment: Probably Good - Pulmonary Exam CTA: Yes - Cardiac Exam Cardiac Exam: RRR - Pre-Operative Health Status ASA Pre-Surgery Classification: ASA3 Proposed Anesthetic Plan: General - Pulmonary Hx Smoking: Yes (quit May 22) Hx Asthma: No Hx Respiratory Symptoms: No (had biopsy on lung mass, "cyst" per patient) COPD: No Hx Pneumonia: No Hx Sleep Apnea: No - Cardiovascular System Hx Hypertension: Yes (x 5 yrs) Hx Cardia Arrhythmia: Yes (tachycardia) - Central Nervous System Hx Psychiatric Problems: No - Gastrointestinal Hx Gastroesophageal Reflux Disease: Yes (food related) - Endocrine Hx End Stage Renal Disease: No Hx Non-Insulin Dependent Diabetes: Yes - Other Systems Hx Alcohol Use: Yes (occas) Hx Cancer: No Hx Obesity: Yes (morbid)
[2017-09-06] MEDS ORDERED: MORPHINE IV PRN (12:42)
[2017-09-06] MEDS ORDERED: DECADRON ONE (13:00)
[2017-09-06] MEDS ORDERED: TORADOL ONE (13:03)
[2017-09-06] MEDS ORDERED: ZOFRAN ONE (13:03)
[2017-09-06] MEDS ORDERED: REGLAN ONE (13:24)
--- NOTE | 2017-09-06 14:02 | Progress Note ---
Assessment and Plan Assessment and plan: The patient is a 37-year-old female comes in with a chief complaint of left buttocks abscess. The patient states last night she began to feel pain at the site of the left buttocks/perineum. The patient states the pain continued to increase since last night. Patient is to subjective fever. Patient denies any drainage from the site or any recent trauma. The patient currently gives her pain a score of 10/10 Sepsis due to skin infection Pending blood cultures Continue IV Zosyn Left perirectal abscess Surgical consult pending Continue Abx, supportive care Hypertension Resume home meds Diabetes type 2 Resume Metformin Accuchecks SSI GERD Ranitidine PRN Ankylosing spondylitis supportive care DVT Prophylaxis Lovenox 09/06/17: going for surgery today for i-n-d History Interval history: Patient was seen and examined. Follow-up on current diagnosis. Overnight uneventful. Patient denies any chest pain, shortness breath, nausea/vomiting or severe headaches. Imaging, nursing note, chart, labs and old chart reviewed. Discussed with patient. Hospitalist Physical - Physical exam Narrative exam: GEN: WDWN, NAD, AWAKE, ALERT, ORIENTATED 3, BMI 44.2 HEENT: NCAT, EOMI, PERRL, OP Clear NECK: supple, no adenopathy, no thyromegaly, no JVD CVS/HEART: RRR, NORMAL S1S2, NO JVD, pulses present bilaterally CHEST/LUNGS: CTA B, Symmetrical chest expansion, good air entry bilaterally GI/Abdomen: soft, NTND, good bowel sounds, no guarding or rebound /Bladder: no suprapubic tenderness, no CVA or paraspinal tenderness EXT/Skin: Left buttock tender Warm erythematous mound MSK: FROM x 4 Neuro: CN 2-12 grossly intact, no new focal deficits Psych: calm - Constitutional Vitals: Temp Pulse Resp BP Pulse Ox 98.9 F 83 20 128/83 97 09/06/17 08:05 09/06/17 08:05 09/06/17 08:05 09/06/17 08:05 09/06/17 08:05 Results - Labs CBC & Chem 7: 09/05/17 05:15 09/05/17 05:15 Labs: Laboratory Last Values WBC 15.4 K/mm3 (4.5-11.0) H 09/05/17 05:15 RBC 3.89 M/mm3 (3.65-5.03) 09/05/17 05:15 Hgb 11.6 gm/dl (10.1-14.3) 09/05/17 05:15 Hct 35.0 % (30.3-42.9) 09/05/17 05:15 MCV 90 fl (79-97) 09/05/17 05:15 MCH 30 pg (28-32) 09/05/17 05:15 MCHC 33 % (30-34) 09/05/17 05:15 RDW 14.3 % (13.2-15.2) 09/05/17 05:15 Plt Count 271 K/mm3 (140-440) 09/05/17 05:15 Lymph % (Auto) 13.8 % (13.4-35.0) 09/05/17 05:15 [place] % (Auto) 7.5 % (0.0-7.3) H 09/05/17 05:15 Eos % (Auto) 0.1 % (0.0-4.3) 09/05/17 05:15 Baso % (Auto) 0.5 % (0.0-1.8) 09/05/17 05:15 Lymph # 2.1 K/mm3 (1.2-5.4) 09/05/17 05:15 [place] # 1.2 K/mm3 (0.0-0.8) H 09/05/17 05:15 Eos # 0.0 K/mm3 (0.0-0.4) 09/05/17 05:15 Baso # 0.1 K/mm3 (0.0-0.1) 09/05/17 05:15 Seg Neutrophils % 78.1 % (40.0-70.0) H 09/05/17 05:15 Seg Neutrophils # 12.0 K/mm3 (1.8-7.7) H 09/05/17 05:15 VBG pH 7.438 (7.320-7.420) H 09/04/17 16:15 Sodium 140 mmol/L (137-145) 09/05/17 05:15 Potassium 4.0 mmol/L (3.6-5.0) 09/05/17 05:15 Chloride 104.3 mmol/L (98-107) 09/05/17 05:15 Carbon Dioxide 19 mmol/L (22-30) L 09/05/17 05:15 Anion Gap 21 mmol/L 09/05/17 05:15 BUN 6 mg/dL (7-17) L 09/05/17 05:15 Creatinine 0.8 mg/dL (0.7-1.2) 09/05/17 05:15 Estimated GFR > 60 ml/min 09/05/17 05:15 BUN/Creatinine Ratio 8 % 09/05/17 05:15 Glucose 216 mg/dL (65-100) H 09/05/17 05:15 POC Glucose 186 (70-105) H 09/06/17 11:14 Lactic Acid 2.50 mmol/L (0.7-2.0) H* 09/04/17 16:15 Calcium 8.7 mg/dL (8.4-10.2) 09/05/17 05:15 HCG, Qual Negative (Negative) 09/04/17 17:14 Urine Color Yellow (Yellow) 09/04/17 17:56 Urine Turbidity Slightly-cloudy (Clear) 09/04/17 17:56 Urine pH 5.0 (5.0-7.0) 09/04/17 17:56 Ur Specific [place] 1.024 (1.003-1.030) 09/04/17 17:56 Urine Protein 100 mg/dl mg/dL (Negative) 09/04/17 17:56 Urine Glucose (UA) Neg mg/dL (Negative) 09/04/17 17:56 Urine Ketones 20 mg/dL (Negative) 09/04/17 17:56 Urine Blood Neg (Negative) 09/04/17 17:56 Urine Nitrite Neg (Negative) 09/04/17 17:56 Urine Bilirubin Neg (Negative) 09/04/17 17:56 Urine Urobilinogen 2.0 mg/dL (<2.0) 09/04/17 17:56 Ur Leukocyte Esterase Neg (Negative) 09/04/17 17:56 Urine WBC (Auto) 1.0 /HPF (0.0-6.0) 09/04/17 17:56 Urine RBC (Auto) 2.0 /HPF (0.0-6.0) 09/04/17 17:56 U Epithel Cells (Auto) 14.0 /HPF (0-13.0) H 09/04/17 17:56 Urine Mucus 1+ /HPF 09/04/17 17:56
--- NOTE | 2017-09-06 14:35 | Operative Report ---
PREOPERATIVE DIAGNOSIS: Large perirectal abscess. POSTOPERATIVE DIAGNOSIS: Large perirectal abscess, left side. SURGERY: Proctosigmoidoscopy, unroofing, evacuation, irrigation and packing of left perirectal abscess that goes all the way to the buttock. I made 2 incisions to evacuate the abscess. We took cultures. ANESTHESIA: General. BLOOD LOSS: Minimal, maybe 10-15 mL. I put a packing. I used for that purpose 1-1/2 inch or 2 inches rather of Iodoform gauze through both incisions, one medial, one lateral to fill the whole space. DESCRIPTION OF PROCEDURE: With the patient in the lithotomy position, prepped and draped in th usual fashion, I was able to introduce the proctosigmoidoscope, I went slowly with insufflation in the usual fashion. I went up to about 20 cm. The mucosa looked normal and healthy-looking to me and red. So, the scope was pulled out and then I changed my gloves. At that point, an incision performed in the area of the left buttock, most inferomedially with a length of about 4 cm. Once I was there, lots of purulent material with blood mixed came out. Then, I put a counter incision more medial, so I had 2 incisions to drain the space that was irrigated. Then, a packing ____ gauze through both incisions within the depth of the space itself. I was very much satisfied. We put a bandage. Then, I checked the rectum for any communication, none was seen. I was very much satisfied. The same thing with the vagina. A bandage was applied as mentioned above. The patient was then transferred to the recovery room in good condition. I did talk to her sisters, told her story, going to keep her maybe tomorrow or Friday to go home. We are going to have ET evaluate her and she would need Sitz baths. I did indicate to her from yesterday that it may take 6-8 weeks for that to heal. This may come again if she would not keep washing the area really well at least once a day with a medicated soap. JOB# [id number] GRANT/ROXANNE
[2017-09-06] MEDS: ATIVAN PO SCH (22:51)
[2017-09-06] MEDS: PRAVACHOL PO SCH (22:51)
[2017-09-07] MEDS: NOVOLOG SUB-Q SCH ×5 (00:47→23:53)
[2017-09-07] MEDS: TYLENOL PO PRN (01:37)
[2017-09-07] MEDS: ZOSYN/NS 4.5GM/100ML 4.5 GM/100 ML VIAL IV SCH ×3 (05:03→23:52)
[2017-09-07 08:51] LABS: Basophils % (Auto) 0.3 % (0.0-1.8); Eosinophils % (Auto) 1.5 % (0.0-4.3); Hematocrit 30.7 % (30.3-42.9); Hemoglobin 10.4 gm/dl (10.1-14.3); Mean Corpuscular HGB Conc 34 % (30-34); Mean Corpuscular Hemoglobin 30 pg (28-32); Mean Corpuscular Volume 88 fl (79-97); Platelet Count 285 K/mm3 (140-440); Red Blood Count 3.48 M/mm3 (3.65-5.03); Red Cell Distribution Width 14.6 % (13.2-15.2); White Blood Count 9.2 K/mm3 (4.5-11.0)
[2017-09-07] MEDS ORDERED: PERCOCET 5/325 PO PRN (09:00)
[2017-09-07 09:13] LABS: Anion Gap 17 mmol/L; BUN/Creatinine Ratio 6; Blood Urea Nitrogen 4 mg/dL (7-17); Carbon Dioxide 23 mmol/L (22-30); Chloride 102.5 mmol/L (98-107); Glucose 245 mg/dL (65-100); Potassium 3.6 mmol/L (3.6-5.0); Sodium 139 mmol/L (137-145)
--- NOTE | 2017-09-07 09:56 | Progress Note ---
Assessment and Plan Assessment and plan: Sepsis due to abscess left sarah-rectal Blood cultures, no growth in 72 hrs Continue IV Zosyn Left perirectal abscess S/P unroofing, evacuation and irrigation done by Dr. Llanes yesterday Continue Abx, supportive care Hypertension. On Metoprolol Diabetes type 2, uncontrolled Start Novolin 70/30 bid Accuchecks SSI GERD Ranitidine PRN Ankylosing spondylitis supportive care DVT Prophylaxis with Lovenox History Interval history: pain perirectal area No fever Hospitalist Physical - Physical exam Narrative exam: GEN APPEARANCE : Not in acute distress, morbidly obese HEENT: Normocephalic, Atraumatic NECK : supple, no JVD LUNGS: Clear to auscultation bilaterally, no rales, no wheeze HEART: S1 and S2 regular, no murmurs, rubs or gallop, ABD: Soft, non tender, non distended, normal bowel sounds EXT: No edema, no clubbing, no cyanosis NEURO: Awake,alert, oriented x3, no focal signs Psych:Normal mood Buttocks: Perirectal packing, covered with dressing - Constitutional Vitals: Temp Pulse Resp BP Pulse Ox 99.5 F 91 H 20 131/86 97 09/07/17 08:00 09/07/17 08:00 09/07/17 08:00 09/07/17 08:00 09/07/17 04:31 Results - Labs CBC & Chem 7: 09/07/17 08:39 09/07/17 08:39 Labs: Laboratory Last Values WBC 9.2 K/mm3 (4.5-11.0) 09/07/17 08:39 RBC 3.48 M/mm3 (3.65-5.03) L 09/07/17 08:39 Hgb 10.4 gm/dl (10.1-14.3) 09/07/17 08:39 Hct 30.7 % (30.3-42.9) 09/07/17 08:39 MCV 88 fl (79-97) 09/07/17 08:39 MCH 30 pg (28-32) 09/07/17 08:39 MCHC 34 % (30-34) 09/07/17 08:39 RDW 14.6 % (13.2-15.2) 09/07/17 08:39 Plt Count 285 K/mm3 (140-440) 09/07/17 08:39 Lymph % (Auto) 18.9 % (13.4-35.0) 09/07/17 08:39 [place] % (Auto) 8.8 % (0.0-7.3) H 09/07/17 08:39 Eos % (Auto) 1.5 % (0.0-4.3) 09/07/17 08:39 Baso % (Auto) 0.3 % (0.0-1.8) 09/07/17 08:39 Lymph # 1.7 K/mm3 (1.2-5.4) 09/07/17 08:39 [place] # 0.8 K/mm3 (0.0-0.8) 09/07/17 08:39 Eos # 0.1 K/mm3 (0.0-0.4) 09/07/17 08:39 Baso # 0.0 K/mm3 (0.0-0.1) 09/07/17 08:39 Seg Neutrophils % 70.5 % (40.0-70.0) H 09/07/17 08:39 Seg Neutrophils # 6.5 K/mm3 (1.8-7.7) 09/07/17 08:39 VBG pH 7.438 (7.320-7.420) H 09/04/17 16:15 Sodium 139 mmol/L (137-145) 09/07/17 08:39 Potassium 3.6 mmol/L (3.6-5.0) 09/07/17 08:39 Chloride 102.5 mmol/L (98-107) 09/07/17 08:39 Carbon Dioxide 23 mmol/L (22-30) 09/07/17 08:39 Anion Gap 17 mmol/L 09/07/17 08:39 BUN 4 mg/dL (7-17) L 09/07/17 08:39 Creatinine 0.7 mg/dL (0.7-1.2) 09/07/17 08:39 Estimated GFR > 60 ml/min 09/07/17 08:39 BUN/Creatinine Ratio 6 % 09/07/17 08:39 Glucose 245 mg/dL (65-100) H 09/07/17 08:39 POC Glucose 238 (70-105) H 09/06/17 17:45 Lactic Acid 1.80 mmol/L (0.7-2.0) 09/07/17 08:39 Calcium 8.0 mg/dL (8.4-10.2) L 09/07/17 08:39 HCG, Qual Negative (Negative) 09/04/17 17:14 Urine Color Yellow (Yellow) 09/04/17 17:56 Urine Turbidity Slightly-cloudy (Clear) 09/04/17 17:56 Urine pH 5.0 (5.0-7.0) 09/04/17 17:56 Ur Specific [place] 1.024 (1.003-1.030) 09/04/17 17:56 Urine Protein 100 mg/dl mg/dL (Negative) 09/04/17 17:56 Urine Glucose (UA) Neg mg/dL (Negative) 09/04/17 17:56 Urine Ketones 20 mg/dL (Negative) 09/04/17 17:56 Urine Blood Neg (Negative) 09/04/17 17:56 Urine Nitrite Neg (Negative) 09/04/17 17:56 Urine Bilirubin Neg (Negative) 09/04/17 17:56 Urine Urobilinogen 2.0 mg/dL (<2.0) 09/04/17 17:56 Ur Leukocyte Esterase Neg (Negative) 09/04/17 17:56 Urine WBC (Auto) 1.0 /HPF (0.0-6.0) 09/04/17 17:56 Urine RBC (Auto) 2.0 /HPF (0.0-6.0) 09/04/17 17:56 U Epithel Cells (Auto) 14.0 /HPF (0-13.0) H 09/04/17 17:56 Urine Mucus 1+ /HPF 09/04/17 17:56
[2017-09-07] MEDS ORDERED: NORCO 5/325 PO PRN ×2 (09:57→18:17)
[2017-09-07] MEDS: LOVENOX SUB-Q SCH (10:40)
[2017-09-07] MEDS: LOPRESSOR PO SCH ×2 (10:40→21:36)
[2017-09-07] MEDS: PROVERA PO SCH ×2 (11:50→15:13)
[2017-09-07] MEDS ORDERED: DILAUDID IV ONE (14:44)
[2017-09-07] MEDS ORDERED: DILAUDID ONE (14:49)
[2017-09-07] MEDS: ZOFRAN IV SCH ×2 (15:04→21:39)
[2017-09-07] MEDS ORDERED: DILAUDID IV PRN (18:19)
[2017-09-07] MEDS: PRAVACHOL PO SCH (21:29)
[2017-09-07] MEDS: ATIVAN PO SCH (21:36)
[2017-09-07] MEDS: DILAUDID IV PRN (23:20)
[2017-09-08] MEDS: ZOFRAN IV SCH (03:20)
[2017-09-08 05:31] VITALS: BP 139/92
[2017-09-08] MEDS: DILAUDID IV PRN ×3 (05:36→10:24)
[2017-09-08] MEDS: ZOSYN/NS 4.5GM/100ML 4.5 GM/100 ML VIAL IV SCH (05:37)
--- NOTE | 2017-09-08 09:44 | Discharge Summary ---
Providers - Providers Date of Admission: 09/04/17 22:49 Date of discharge: 09/08/17 Attending physician: GIGI GUSMAN 09/04/17 21:57 Consult to Physician [CONS] Urgent Consulting Provider: RUSTAM MCNEAL Reason For Exam: perianal abscess Place consult to:: Dr. Mcneal Notified:: his number Phone number called:: his number Was contact made?: Yes If yes, spoke with:: Dr. Mcneal Time called:: 21:54 Comment:: Dr. Heredia (er dr) spoke with Dr. Mcneal 09/06/17 15:14 Consult to Wound/ET Nurse [CONS] Urgent Reason For Exam: wound eval Primary care physician: CLAUDIA JUNG Hospitalization Condition: Fair Hospital course: Patient is 37 yo with diabetes, hypertension. She presented with a swelling on left lower buttock area. She denies any trauma. CT Abdomen and pelvis was done. She was diagnosed sepsis due to left sarah-rectal abscess, started on iv Zosyn and admitted. Surgeon was consulted. and she was taken to OR. Proctosigmoidoscopy, de-christina of abscess and packing was done through two incisions. Post-operative was uneventful and she was discharged home on on Levaquin and Flagyl and home health wound care. Total time spent o discharge, 33 mins. Disposition: [id number]/TX-06 HOME UNDER HOME HLTH - Discharge Diagnoses (1) Perirectal abscess Status: Acute (2) Diabetes mellitus type 2, uncontrolled Status: Chronic Qualifiers: Diabetes mellitus complication status: with hyperglycemia (3) Hypertension Status: Chronic Qualifiers: Hypertension type: essential hypertension Qualified Code(s): I10 - Essential (primary) hypertension (4) Sepsis due to Gram negative bacteria Status: Acute (5) Morbid obesity Status: Chronic Core Measure Documentation - Palliative Care Palliative Care/ Comfort Measures: Not Applicable - Core Measures Any of the following diagnoses?: none Exam - Physical Exam Narrative exam: GEN APPEARANCE : Not in acute distress, morbidly obese HEENT: Normocephalic, Atraumatic NECK : supple, no JVD LUNGS: Clear to auscultation bilaterally, no rales, no wheeze HEART: S1 and S2 regular, no murmurs, rubs or gallop, ABD: Soft, non tender, non distended, normal bowel sounds EXT: No edema, no clubbing, no cyanosis NEURO: Awake,alert, oriented x3, no focal signs Psych:Normal mood Buttocks: Perirectal area covered with dressing - Constitutional Vitals: Temp Pulse Resp BP Pulse Ox 98.6 F 80 18 139/92 97 09/08/17 04:51 09/08/17 04:51 09/08/17 04:51 09/08/17 04:51 09/08/17 04:51 Plan Activity: no restrictions Diet: low fat, low cholesterol, low salt, diabetic Additional Instructions: 1.Follow up with PCP in 3-5 days. 2.Follow up with Dr. Mcneal in 3-5 days. 3.Wound care by home health Nurse Follow up with: CLAUDIA JUNG MD [Primary Care Provider] - 3-5 Days Prescriptions: HYDROcodone/ACETAMINOPHEN [Polson 10-325 Tablet] 1 each PO Q6H #20 tablet Levofloxacin [Levaquin] 750 mg PO QDAY 12 Days tablet metroNIDAZOLE [Flagyl] 500 mg PO Q8HR 12 Days tablet Promethazine [Phenergan TAB] 25 mg PO Q6HR PRN #20 tab PRN Reason: nausea or vomiting
[2017-09-08] MEDS: LOPRESSOR PO SCH (10:26)
[2017-09-08] MEDS: PROVERA PO SCH ×2 (10:26→10:33)
[2017-09-08] MEDS: LOVENOX SUB-Q SCH (10:28)
[2017-09-08] MEDS ORDERED: DILAUDID IV ONE (11:00)
[2017-09-08] MEDS: NOVOLOG SUB-Q SCH (14:58)
== END 2017-09-08 15:43 | disposition home health service (06) | DRG 854 ==
LOC: ED 14:14 → 3A 22:49 → 3B-SURG 09-06 15:02
PROVIDERS: ADMIT Internal Medicine; ATTEND Internal Medicine
PROC: 0J990ZZ Drainage of Buttock Subcutaneous Tissue and Fascia, Open Approach (ICD-10-PCS; principal; 2017-09-06)
PROC: 0DJD8ZZ Inspection of Lower Intestinal Tract, Via Natural or Artificial Opening Endoscopic (ICD-10-PCS; 2017-09-06)
DX: A41.9 Sepsis, unspecified organism (principal); K61.1 Rectal abscess; Z68.41 Body mass index [BMI] 40.0-44.9, adult; I10 Essential (primary) hypertension; E11.8 Type 2 diabetes mellitus with unspecified complications; K21.9 Gastro-esophageal reflux disease without esophagitis; M45.9 Ankylosing spondylitis of unspecified sites in spine; E66.01 Morbid (severe) obesity due to excess calories; R00.0 Tachycardia, unspecified; Z82.49 Family history of ischemic heart disease and other diseases of the circulatory system; Z83.3 Family history of diabetes mellitus; Z87.891 Personal history of nicotine dependence; Z72.89 Other problems related to lifestyle; Z79.899 Other long term (current) drug therapy
CPT/HCPCS: 36415; 74177; 80048; 81001; 82140; 82805; 82962; 83036; 84703; 85025; 87040; 87075; 87076; 87116; 87186; 96365; 96366; 96368; 96375; 96376; A9270-GY; J1100; J1170; J1650; J1815; J1885; J2270; J2405; J2543; J2704; J2765; J3010; J3370; J7030; Q9967

== ENCOUNTER 2020-09-12 11:20 | Outpatient (CLI) | payer MEDICAID ==
[2020-09-12 13:14] LABS: Hematocrit 33.2 % (30.3-42.9); Hemoglobin 11.7 gm/dl (10.1-14.3); Mean Corpuscular HGB Conc 35 % (30-34); Mean Corpuscular Volume 90 fl (79-97); Platelet Count 262 K/mm3 (140-440); Red Blood Count 3.71 M/mm3 (3.65-5.03); Red Cell Distribution Width 14.5 % (13.2-15.2)
[2020-09-12 13:30] LABS: Alanine Aminotransferase 9 units/L (7-56); Blood Urea Nitrogen 12 mg/dL (7-17); Hemolysis Index 4
[2020-09-12 13:31] LABS: BUN/Creatinine Ratio 17
[2020-09-12 14:37] VITALS: BP 143/91
[2020-09-12] MEDS ORDERED: LACTATED RINGERS 500 ML IV ONE (15:31)
== END 2020-09-12 15:33 | disposition home or self-care (01) ==
LOC: TRG 11:20 → APU 11:20 → TRG 15:33
PROVIDERS: ATTEND Obstetrics & Gynecology
DX: O26.893 Other specified pregnancy related conditions, third trimester (principal); R42 Dizziness and giddiness; Z3A.34 34 weeks gestation of pregnancy
CPT/HCPCS: 36415; 59025; 80053; 82962; 85027

== ENCOUNTER 2020-10-17 15:35 | Inpatient (IN) | payer MEDICAID ==
[2020-10-17] MEDS ORDERED: CALCIUM GLUCONATE 1000 MG/10 ML INJ IV PRN (16:07)
[2020-10-17] MEDS ORDERED: MAGNESIUM SULFATE 4 GM/100 ML BAG IV ONE ×2 (16:07→18:40)
[2020-10-17] MEDS ORDERED: DEXTROSE 50% IN WATER (25GM) 50 ML SYRINGE IV PRN (16:15)
--- NOTE | 2020-10-17 16:21 | History and Physical Report ---
History of Present Illness Date of examination: 10/17/20 Chief complaint: sent from the office with elevated blood pressures History of present illness: Pt is a 40 year old -[place] female s/p primary at 35 wks on 09/23/20 secondary to non-reassuring status who presents to the office with BP 170-190s/100-110s despite compliance with her metoprolol 25 mg BID. She reports mild headache, and denies blurry vision or scotomata. She has a h/o insulin dependent diabetes, delayed wound healing, and uterine fibroids. Past History Past Medical History: hypertension, diabetes Past Surgical History: section (09/23/20) [facility] History: fibroids, herpes Family/Genetic History: heart disease Social history: no significant social history - Obstetrical History : 2 Para: 1 Hx # Term Pregnancies: 0 Number of Pregnancies: 1 Spontaneous Abortions: 1 Induced : 0 Number of Living Children: 1 Medications and Allergies Allergies Allergy/AdvReac Type Severity Reaction Status Date / Time No Known Allergies Allergy Unverified 05/23/17 17:19 Home Medications Medication Instructions Recorded Confirmed Last Taken Type Metoprolol [Lopressor TAB] 25 mg PO BID 02/18/17 09/23/20 1 Day Ago History ~09/22/20 Multivitamin Tab [Multiple Vitamin 1 each PO QDAY 02/18/17 09/23/20 1 Day Ago History TAB (Theragran)] ~09/22/20 raNITIdine HCl [Zantac] 150 mg PO PRN PRN 02/18/17 09/23/20 09/03/17 History Lovastatin [Altoprev] 20 mg PO QPM 09/04/17 09/23/20 09/03/17 History medroxyPROGESTERone ACETATE 10 mg PO QDAY 09/04/17 09/23/20 09/03/17 History [Provera] HYDROcodone/ACETAMINOPHEN [Clements 1 each PO Q6H #20 tablet 09/08/17 09/23/20 Unknown Rx 10-325 Tablet] Promethazine [Phenergan] 25 mg PO Q6HR PRN #20 tab 09/08/17 09/23/20 Unknown Rx levoFLOXacin [Levaquin] 750 mg PO QDAY 12 Days tablet 09/08/17 09/23/20 Unknown Rx metroNIDAZOLE [Flagyl] 500 mg PO Q8HR 12 Days tablet 09/08/17 09/23/20 Unknown Rx Ibuprofen [Motrin] 800 mg PO Q8HR PRN #60 tablet 09/24/20 Unknown Rx metFORMIN [Glucophage] 1,000 mg PO BID 30 Days #60 09/24/20 Unknown Rx oxyCODONE /ACETAMINOPHEN [Percocet 1 tab PO Q6HR PRN #30 tablet 09/24/20 Unknown Rx 5/325] Ferrous Sulfate [Feosol 325 MG tab] 325 mg PO BID #60 tablet 09/26/20 Unknown Rx Metformin HCl [metFORMIN] 1,000 mg PO BID #60 tablet 09/26/20 Unknown Rx Active Meds: Active Medications Calcium Gluconate (Calcium Gluconate 1000 Mg/10 Ml Inj) 1,000 mg IV ONCE PRN PRN Reason: Hypomagnesemia Dextrose (Dextrose 50% In Water (25gm) 50 Ml Syringe) 50 ml IV Q30MIN PRN; Protocol PRN Reason: Hypoglycemia Hydralazine HCl (Hydralazine 20 Mg/1 Ml Inj) 5 mg IV Q30MIN PRN PRN Reason: Hypertension Lactated Ringer's (Lactated Ringers) 1,000 mls @ 125 mls/hr IV DIRECT LEANNA Magnesium Sulfate (Magnesium Sulfate 4gm/100ml) 4 gm in 100 mls @ 300 mls/hr IV ONCE ONE Stop: 10/17/20 16:26 Magnesium Sulfate (Magnesium Sulfate 40gm/1000ml) 40 gm in 1,000 mls @ 50 mls/hr IV DIRECT LEANNA Insulin Human NPH (Insulin Nph, Human 100 Unit/1 Ml) 20 unit SUB-Q QDDIAB LEANNA Insulin Human NPH (Insulin Nph, Human 100 Unit/1 Ml) 14 unit SUB-Q QPMDIAB LEANNA Insulin Human Regular (Insulin Regular, Human 100 Units/1 Ml) 10 units SUB-Q QDDIAB LEANNA Insulin Human Regular (Insulin Regular, Human 100 Units/1 Ml) 7 units SUB-Q QPMDIAB LEANNA Insulin Human Regular (Insulin Regular, Human 100 Units/1 Ml) 0 units SUB-Q Q6H LEANNA; Protocol Review of Systems All systems: negative - Physical Exam Abdomen: Positive: soft (obese ), other (incision with 1 cm area not well approximated ) Extremities: Positive: edema (trace) Results All other labs normal. Assessment and Plan A: Chronic Hypertension with superimposed preeclampsia Insulin Dependent Diabetes Mellitus Morbid Obesity Fibroid Uterus P: Admit for IV magnesium sulfate for seizure prophylaxis Restart home insulin regimen Fasting and 2 hour postprandial accucheks Closely monitor clinical status
[2020-10-17] MEDS ORDERED: MAGNESIUM SULFATE 40GM/1000ML 40 GM/1,000 ML BAG IV SCH (17:00)
[2020-10-17] MEDS ORDERED: INSULIN NPH, HUMAN 100 UNIT/1 ML SUB-Q SCH (17:00)
[2020-10-17] MEDS ORDERED: INSULIN REGULAR, HUMAN 100 UNITS/1 ML SUB-Q SCH ×2 (17:00→18:00)
[2020-10-17 18:44] LABS: Hematocrit 36.5 % (30.3-42.9); Hemoglobin 12.3 gm/dl (10.1-14.3); Mean Corpuscular HGB Conc 34 % (30-34); Mean Corpuscular Volume 90 fl (79-97); Platelet Count 414 K/mm3 (140-440); Red Blood Count 4.07 M/mm3 (3.65-5.03); Red Cell Distribution Width 14.4 % (13.2-15.2)
[2020-10-17] MEDS: hydrALAZINE 20 MG/1 ML INJ IV PRN ×2 (18:47→20:42)
[2020-10-17] MEDS: LACTATED RINGERS 1,000 ML IV SCH (18:47)
[2020-10-17 19:01] LABS: Alanine Aminotransferase 9 units/L (7-56); Blood Urea Nitrogen 11 mg/dL (7-17); Calcium 8.9 mg/dL (8.4-10.2); Hemolysis Index 8
[2020-10-17 19:02] LABS: BUN/Creatinine Ratio 16
[2020-10-17] MEDS: METOPROLOL TARTRATE 25 MG TAB PO SCH (21:48)
[2020-10-17] MEDS: metFORMIN 500 MG TAB PO SCH (21:49)
[2020-10-17] MEDS ORDERED: ACETAMINOPHEN 325 MG TAB PO ONE (23:40)
[2020-10-18] MEDS: hydrALAZINE 20 MG/1 ML INJ IV PRN ×4 (02:01→10:53)
[2020-10-18] MEDS ORDERED: MORPHINE 2 MG/1 ML INJ IV ONE (05:32)
[2020-10-18] MEDS: LACTATED RINGERS 1,000 ML IV SCH (07:29)
[2020-10-18] MEDS ORDERED: INSULIN REGULAR, HUMAN 100 UNITS/1 ML SUB-Q SCH ×3 (08:00→20:00)
[2020-10-18] MEDS ORDERED: INSULIN NPH, HUMAN 100 UNIT/1 ML SUB-Q SCH ×2 (08:00→22:00)
[2020-10-18] MEDS: metFORMIN 500 MG TAB PO SCH ×2 (08:06→18:56)
[2020-10-18] MEDS ORDERED: ACETAMINOPHEN 500 MG TAB PO NR (08:36)
[2020-10-18] MEDS ORDERED: NALOXONE 0.4 MG/1 ML INJ IV PRN (08:36)
--- NOTE | 2020-10-18 08:45 | Progress Note ---
Assessment and Plan A: Chronic hypertension with superimposed preeclampsia with severe features Diabetes mellitus Pain r/t Ankylosing spondilitis BP poorly controlled P: Continue Mag sulfate infusion for seizure prophylaxis Consult with MD r/t BP, BG, and pain Closely monitor clinical status Subjective - Subjective Date of service: 10/18/20 Principal diagnosis: preeclampsia Interval history: HD2 of readmission for preeclampsia with severe features. BP severe range, minimally responsive to Metoprolol, Procardia, and rescue Hydralazine. Denies EAGLE/scotomata/RUQ pain/swelling. Reports diffuse joint pain due to ankylo sing spondylitis. Patient reports: appetite normal, pain poorly controlled Objective - Vital Signs Latest vital signs: Vital Signs Temp Pulse Resp BP BP Pulse Ox 10/18/20 08:42 84 94 10/18/20 08:41 80 96 10/18/20 08:36 85 97 10/18/20 08:33 80 171/108 94 10/18/20 08:31 84 163/106 96 10/18/20 08:26 86 96 10/18/20 08:21 83 97 10/18/20 08:18 98.0 F 88 18 157/101 163/106 94 10/18/20 08:16 85 96 10/18/20 08:11 88 97 10/18/20 08:06 81 97 10/18/20 08:03 82 167/106 10/18/20 08:01 87 96 10/18/20 07:56 86 96 10/18/20 07:51 81 96 10/18/20 07:48 82 166/103 10/18/20 07:46 82 96 10/18/20 07:41 82 96 10/18/20 07:36 84 171/105 98 10/18/20 07:33 84 173/98 10/18/20 07:31 84 97 10/18/20 07:26 83 98 10/18/20 07:21 84 95 10/18/20 07:18 88 152/89 10/18/20 07:16 84 93 10/18/20 07:11 80 93 10/18/20 07:10 83 91 10/18/20 07:06 79 97 10/18/20 07:05 86 94 10/18/20 07:03 83 163/92 10/18/20 07:01 82 95 10/18/20 07:00 79 94 10/18/20 06:56 78 97 10/18/20 06:55 78 94 10/18/20 06:51 84 93 10/18/20 06:49 81 94 10/18/20 06:48 80 155/91 10/18/20 06:46 85 93 10/18/20 06:44 79 94 10/18/20 06:41 83 95 10/18/20 06:39 85 94 10/18/20 06:36 86 97 10/18/20 06:33 84 170/96 10/18/20 06:31 81 91 10/18/20 06:30 87 93 10/18/20 06:26 80 94 10/18/20 06:25 86 91 10/18/20 06:21 85 91 10/18/20 06:19 83 93 10/18/20 06:18 80 164/85 10/18/20 06:16 86 93 10/18/20 06:13 87 93 10/18/20 06:11 79 94 10/18/20 06:08 85 92 10/18/20 06:06 79 95 10/18/20 06:03 80 162/88 94 10/18/20 06:01 82 95 10/18/20 05:58 88 92 10/18/20 05:56 89 95 10/18/20 05:53 83 94 10/18/20 05:51 87 93 10/18/20 05:48 80 160/88 10/18/20 05:47 84 94 10/18/20 05:46 82 96 10/18/20 05:41 81 95 10/18/20 05:36 87 95 10/18/20 05:33 82 157/85 10/18/20 05:31 86 96 10/18/20 05:26 85 97 10/18/20 05:21 91 H 98 10/18/20 05:18 85 164/90 10/18/20 05:16 80 98 10/18/20 05:11 82 92 10/18/20 05:06 90 91 10/18/20 05:03 79 163/89 10/18/20 05:01 88 93 10/18/20 05:00 82 94 10/18/20 04:56 89 92 10/18/20 04:54 88 94 10/18/20 04:51 87 96 10/18/20 04:48 80 164/90 10/18/20 04:47 91 H 92 10/18/20 04:46 87 95 10/18/20 04:42 84 94 10/18/20 04:41 85 93 10/18/20 04:37 83 94 10/18/20 04:36 87 94 10/18/20 04:33 83 163/90 10/18/20 04:31 84 96 10/18/20 04:26 82 94 10/18/20 04:21 84 94 10/18/20 04:20 84 93 10/18/20 04:18 85 162/90 10/18/20 04:16 91 H 96 10/18/20 04:14 91 H 94 10/18/20 04:11 91 H 96 10/18/20 04:08 89 93 10/18/20 04:06 82 96 10/18/20 04:03 82 157/82 10/18/20 04:01 81 95 10/18/20 03:59 84 94 10/18/20 03:56 86 95 10/18/20 03:54 92 H 94 10/18/20 03:51 84 95 10/18/20 03:48 85 155/85 93 10/18/20 03:46 84 96 10/18/20 03:41 89 95 10/18/20 03:36 82 98 10/18/20 03:33 80 155/89 10/18/20 03:31 83 96 10/18/20 03:30 98.0 F 20 10/18/20 03:29 84 182/102 10/18/20 03:26 82 98 10/18/20 03:21 85 94 10/18/20 03:19 83 182/102 89 10/18/20 03:16 75 97 10/18/20 03:12 91 H 91 10/18/20 03:11 82 88 10/18/20 03:07 80 94 10/18/20 03:06 83 94 10/18/20 03:03 81 166/89 10/18/20 03:02 81 94 10/18/20 03:01 84 94 10/18/20 02:56 82 96 10/18/20 02:54 87 90 10/18/20 02:51 82 96 10/18/20 02:49 86 92 10/18/20 02:48 85 163/88 10/18/20 02:46 84 95 10/18/20 02:43 84 94 10/18/20 02:41 85 94 10/18/20 02:38 82 94 10/18/20 02:36 85 96 10/18/20 02:33 83 163/90 10/18/20 02:31 85 96 10/18/20 02:26 84 96 10/18/20 02:21 80 96 10/18/20 02:18 75 163/85 10/18/20 02:16 75 96 10/18/20 02:11 89 98 10/18/20 02:06 83 97 10/18/20 02:03 84 164/89 10/18/20 02:01 83 171/96 97 10/18/20 01:58 80 93 10/18/20 01:56 81 88 10/18/20 01:51 76 91 10/18/20 01:48 74 171/96 10/18/20 01:46 76 97 10/18/20 01:41 82 87 10/18/20 01:40 76 86 10/18/20 01:36 74 93 10/18/20 01:35 74 94 10/18/20 01:33 68 169/99 10/18/20 01:31 72 94 10/18/20 01:30 81 89 10/18/20 01:26 69 96 10/18/20 01:24 81 93 10/18/20 01:21 78 94 10/18/20 01:18 76 164/98 94 10/18/20 01:16 77 94 10/18/20 01:13 79 94 10/18/20 01:11 77 95 10/18/20 01:06 79 96 10/18/20 01:05 83 94 10/18/20 01:03 76 156/89 10/18/20 01:01 78 97 10/18/20 00:56 81 98 10/18/20 00:51 78 97 10/18/20 00:48 78 154/90 10/18/20 00:46 82 97 10/18/20 00:41 79 96 10/18/20 00:36 78 96 10/18/20 00:33 83 155/99 10/18/20 00:31 84 97 10/18/20 00:26 84 95 01/27/21 00:21 85 99 10/18/20 00:18 74 149/90 10/18/20 00:17 83 93 10/18/20 00:16 80 94 10/18/20 00:12 79 92 10/18/20 00:11 75 97 10/18/20 00:06 77 96 10/18/20 00:03 81 166/94 10/18/20 00:01 85 94 10/18/20 00:00 85 94 10/17/20 23:56 81 94 10/17/20 23:55 83 93 10/17/20 23:51 82 96 10/17/20 23:48 83 163/88 94 10/17/20 23:46 81 95 10/17/20 23:41 86 96 10/17/20 23:36 85 96 10/17/20 23:33 85 159/88 10/17/20 23:31 88 98 10/17/20 23:26 98.0 F 84 18 96 10/17/20 23:21 87 96 10/17/20 23:18 83 157/91 10/17/20 23:16 88 97 10/17/20 23:11 84 97 10/17/20 23:06 86 96 10/17/20 23:03 83 166/88 94 10/17/20 23:01 86 99 10/17/20 22:56 82 98 10/17/20 22:53 86 91 10/17/20 22:51 83 98 10/17/20 22:48 87 181/99 10/17/20 22:46 86 90 10/17/20 22:41 100 H 90 10/17/20 22:36 90 85 10/17/20 22:33 82 166/87 10/17/20 22:31 87 97 10/17/20 22:30 96 H 93 10/17/20 22:26 86 97 10/17/20 22:24 93 H 93 10/17/20 22:21 99 H 88 10/17/20 22:19 90 93 10/17/20 22:18 90 169/86 10/17/20 22:16 88 94 10/17/20 22:14 85 93 10/17/20 22:11 86 91 10/17/20 22:08 92 H 94 10/17/20 22:06 95 H 95 10/17/20 22:03 98 H 162/85 10/17/20 22:01 91 H 94 10/17/20 21:58 99 H 93 10/17/20 21:56 91 H 95 10/17/20 21:51 86 96 10/17/20 21:48 88 159/88 10/17/20 21:46 84 97 10/17/20 21:43 85 94 10/17/20 21:41 85 96 10/17/20 21:38 90 94 10/17/20 21:36 85 97 10/17/20 21:31 92 H 95 10/17/20 21:30 93 H 92 10/17/20 21:26 89 96 10/17/20 21:24 94 H 93 10/17/20 21:21 91 H 96 10/17/20 21:19 91 H 94 10/17/20 21:18 87 157/96 10/17/20 21:16 88 95 10/17/20 21:13 87 92 10/17/20 21:11 82 95 10/17/20 21:08 85 93 10/17/20 21:06 84 97 10/17/20 21:03 86 168/96 10/17/20 21:01 86 96 10/17/20 20:56 89 96 10/17/20 20:51 86 97 10/17/20 20:48 80 165/93 10/17/20 20:46 81 97 10/17/20 20:41 81 97 10/17/20 20:36 94 10/17/20 20:33 78 168/94 10/17/20 20:31 81 96 10/17/20 20:26 81 97 10/17/20 20:21 77 98 10/17/20 20:18 81 176/103 10/17/20 20:16 83 94 10/17/20 20:11 77 97 10/17/20 20:06 80 96 10/17/20 20:03 81 168/97 94 10/17/20 20:01 83 97 10/17/20 19:56 81 98 10/17/20 19:51 79 99 10/17/20 19:48 84 175/95 10/17/20 19:46 84 99 10/17/20 19:41 85 98 10/17/20 19:36 84 97 10/17/20 19:31 85 98 10/17/20 19:28 86 167/96 10/17/20 19:26 86 97 10/17/20 19:23 86 164/95 10/17/20 19:21 86 97 10/17/20 19:18 88 163/95 10/17/20 19:16 85 98 10/17/20 19:13 88 164/93 10/17/20 19:11 87 98 10/17/20 19:10 98.3 F 89 18 169/94 98 10/17/20 19:08 89 169/94 10/17/20 19:06 90 99 10/17/20 19:03 86 161/93 10/17/20 19:01 85 97 10/17/20 19:00 16 10/17/20 18:58 84 167/95 10/17/20 18:56 81 99 10/17/20 18:55 14 10/17/20 18:54 78 163/96 10/17/20 18:53 80 171/94 10/17/20 18:51 77 99 10/17/20 18:50 16 10/17/20 18:48 75 171/94 10/17/20 18:46 74 98 10/17/20 18:41 73 98 10/17/20 18:36 72 98 10/17/20 18:35 73 187/95 10/17/20 18:33 74 178/87 10/17/20 18:31 77 98 10/17/20 18:26 76 100 10/17/20 18:21 80 98 10/17/20 18:17 85 187/97 10/17/20 18:16 98.4 F 80 16 187/97 99 Intake and Output 10/17/20 10/18/20 10/18/20 23:59 07:59 15:59 Intake Total 120 1240 Output Total 450 1650 800 Balance -330 -410 -800 Intake: IV 1000 Lactated Ringers 1,000 ml 1000 @ 125 mls/hr IV DIRECT LEANNA Rx#:[id number] Oral 120 240 Output: Urine 450 1650 800 Indwelling Catheter 450 1650 800 Other: Total, Intake Amount 120 240 Total, Output Amount 450 500 800 Weight 187 lb - Exam Uterus: Present: firm, fundal height below umbilicus Extremities: Present: normal Incision: Present: normal, dry, intact - Labs Labs: Abnormal lab results 10/17/20 10/17/20 10/18/20 Range/Units 18:25 19:51 00:21 Glucose 153 H (65-100) mg/dL POC Glucose 158 H (70-105) mg/dL Magnesium 3.80 H (1.7-2.3) mg/dL 10/18/20 10/18/20 Range/Units 05:25 07:18 Glucose (65-100) mg/dL POC Glucose 191 H (70-105) mg/dL Magnesium 4.20 H (1.7-2.3) mg/dL
[2020-10-18] MEDS ORDERED: MORPHINE 4 MG/1 ML INJ IV ONE (09:00)
[2020-10-18] MEDS ORDERED: NIFEdipine XL 30 MG TAB PO SCH (09:00)
[2020-10-18] MEDS: METOPROLOL TARTRATE 25 MG TAB PO SCH (10:12)
[2020-10-18] MEDS ORDERED: ONDANSETRON 4 MG/2 ML INJ ONE (10:38)
[2020-10-18] MEDS ORDERED: ONDANSETRON 4 MG/2 ML INJ IV PRN (10:42)
[2020-10-18] MEDS ORDERED: hydrALAZINE 20 MG/1 ML INJ IV NR (11:27)
[2020-10-18] MEDS ORDERED: D5W/LACTATED RINGERS 1,000 ML IV SCH (15:00)
[2020-10-18] MEDS ORDERED: METOPROLOL TARTRATE 25 MG TAB PO SCH (16:00)
[2020-10-18] MEDS ORDERED: LACTATED RINGERS 1,000 ML ONE (16:20)
[2020-10-18] MEDS: ACETAMINOPHEN 500 MG TAB PO PRN (16:32)
[2020-10-18] MEDS: INSULIN REGULAR, HUMAN 100 UNITS/1 ML SUB-Q SCH ×3 (17:06→22:01)
[2020-10-18] MEDS ORDERED: BUTALB/ACETAMINOPHEN/CAFFEINE TAB PO PRN ×2 (20:30)
[2020-10-18] MEDS ORDERED: NIFEdipine XL 60 MG TAB PO SCH (22:00)
[2020-10-18] MEDS: NIFEdipine XL 60 MG TAB PO SCH (22:30)
[2020-10-19] MEDS: INSULIN REGULAR, HUMAN 100 UNITS/1 ML SUB-Q SCH ×2 (05:50→12:04)
[2020-10-19] MEDS ORDERED: INSULIN NPH, HUMAN 100 UNIT/1 ML SUB-Q SCH (08:00)
[2020-10-19] MEDS ORDERED: INSULIN REGULAR, HUMAN 100 UNITS/1 ML SUB-Q SCH (08:00)
--- NOTE | 2020-10-19 08:00 | Discharge Summary ---
Providers - Providers Date of Admission: 10/17/20 17:55 Date of discharge: 10/19/20 Attending physician: XIOMARA MALDONADO Primary care physician: XIOMARA MALDONADO Hospitalization Reason for admission: other ( preeclampsia) Hospital course: Pt was admitted for preeclampsia with severe features. She received magnesium sulfate x24 hours, multiple antihypertensives, and a sliding scale insulin regimen was added to her existing Metformin regimen. She met discharge criteria on HD3 and will take Metoprolol 25mg BID, Procardia 60mg BID, and Metformin 1000mg BID at home. Condition at discharge: Good Disposition: DC-01 TO HOME OR SELFCARE Plan - Discharge Medications Prescriptions: Metoprolol [Lopressor TAB] 25 mg PO BID #60 tablet NIFEdipine [Nifedipine] 60 mg PO BID 30 Days capsule - Provider Discharge Summary Diet: routine Instructions: routine Additional instructions: [] Smoking cessation referral if applicable(refer to patient education folder for contact #) [] Refer to [facility]'s [facility] Booklet Call your doctor immediately for: * Fever > 100.5 * Heavy vaginal bleeding ( >1 pad per hour) * Severe persistent headache * Shortness of breath * Reddened, hot, painful area to leg or breast * Drainage or odor from incision. * Keep incision clean and dry at all times and follow doctor's instructions regarding bathing/showering - Follow up plan Follow up: XIOMARA MALDONADO MD [Primary Care Provider] - 7 Days
[2020-10-19] MEDS: metFORMIN 500 MG TAB PO SCH (08:43)
[2020-10-19] MEDS: ACETAMINOPHEN 500 MG TAB PO PRN (09:33)
[2020-10-19] MEDS ORDERED: METOPROLOL TARTRATE 25 MG TAB PO SCH (10:00)
[2020-10-19] MEDS: NIFEdipine XL 60 MG TAB PO SCH (11:12)
[2020-10-19 13:10] VITALS: BP 116/60
== END 2020-10-19 14:00 | disposition home or self-care (01) | DRG 776 ==
LOC: UNDOADMIN 15:35 → 3A 15:35 → LD 17:55 → OB 10-19 01:32
PROVIDERS: ADMIT Obstetrics & Gynecology; ATTEND Obstetrics & Gynecology
DX: O11.5 Pre-existing hypertension with pre-eclampsia, complicating the puerperium (principal); O24.13 Pre-existing type 2 diabetes mellitus, in the puerperium; E11.9 Type 2 diabetes mellitus without complications; O99.215 Obesity complicating the puerperium; E66.01 Morbid (severe) obesity due to excess calories
CPT/HCPCS: 36415; 80053; 82565; 82962; 83735; 84550; 85027; G0378; J0360; J1815; J2270; J3475; J7120